=== PATIENT | female | born 1990 | race Caucasian/White ===

== ENCOUNTER 2019-04-10 13:51 | Outpatient (CLI) | payer BC ==
[2019-04-10 14:26] LABS: APPEARANCE,URINE CLEAR; BILIRUBIN,URINE NEGATIVE (NEGATIVE); COLOR,URINE YELLOW; GLUCOSE, URINE NEGATIVE (NEGATIVE); KETONES,URINE NEGATIVE (NEGATIVE); LEUKOCYTE ESTERASE,URINE SMALL (NEGATIVE); NITRITE,URINE NEGATIVE (NEGATIVE); PROTEIN,URINE NEGATIVE (NEGATIVE); URINE SPECIFIC GRAVITY 1.009; UROBILINOGEN,URINE NEGATIVE mg/dL (<2.0)
[2019-04-10 14:53] LABS: URINE AMPHETAMINES SCREEN NEGATIVE; URINE BARBITURATES SCREEN NEGATIVE; URINE BENZODIAZEPINES SCREEN NEGATIVE; URINE COCAINE SCREEN NEGATIVE; URINE MARIJUANA (THC) SCREEN NEGATIVE; URINE METHADONE SCREEN NEGATIVE; URINE PHENCYCLIDINE SCREEN NEGATIVE
== END 2019-04-10 14:59 | disposition home or self-care (01) ==
LOC: LC 13:51
PROVIDERS: ATTEND Obstetrics & Gynecology
PROC: 4A1HXCZ Monitoring of Products of Conception, Cardiac Rate, External Approach (ICD-10-PCS; principal; 2019-04-10)
DX: O47.03 False labor before 37 completed weeks of gestation, third trimester (principal); Z3A.36 36 weeks gestation of pregnancy
CPT/HCPCS: 59025; 80307; 81001; 87086

== ENCOUNTER 2019-04-21 16:30 | Inpatient (IN) | payer BC ==
[2019-04-21 17:13] LABS: APPEARANCE,URINE SLIGHTLY-CLOUDY; BILIRUBIN,URINE NEGATIVE (NEGATIVE); COLOR,URINE YELLOW; GLUCOSE, URINE 50 mg/dL (NEGATIVE); KETONES,URINE NEGATIVE (NEGATIVE); LEUKOCYTE ESTERASE,URINE NEGATIVE (NEGATIVE); NITRITE,URINE NEGATIVE (NEGATIVE); PROTEIN,URINE NEGATIVE (NEGATIVE); URINE SPECIFIC GRAVITY 1.014; UROBILINOGEN,URINE NEGATIVE mg/dL (<2.0)
[2019-04-21 17:24] LABS: URINE AMPHETAMINES SCREEN NEGATIVE; URINE BARBITURATES SCREEN NEGATIVE; URINE BENZODIAZEPINES SCREEN NEGATIVE; URINE COCAINE SCREEN NEGATIVE; URINE MARIJUANA (THC) SCREEN NEGATIVE; URINE METHADONE SCREEN NEGATIVE; URINE PHENCYCLIDINE SCREEN NEGATIVE
[2019-04-21] MEDS ORDERED: RINGERS SOLUTION,LACTATED 1,000 ML IV ONE (17:25)
[2019-04-21] MEDS ORDERED: RINGERS SOLUTION,LACTATED 1,000 ML IV PRN (17:45)
[2019-04-21] MEDS ORDERED: OXYTOCIN/NORMAL SALINE 20 UNIT/1,000 ML RTUINJ IV PRN (18:28)
--- NOTE | 2019-04-21 18:37 | Admission Physical ---
Datetime Report Generated by CPN: 04/21/2019 18:37 CURRENT ADMISSION Chief Complaint: Uterine Contractions Admit Impression : , Intrauterine ; Active Labor; Ruptured Membranes Admit Plan: Admit to Unit; Initiate Labor Augmentation Protocol ALLERGIES Medication Allergies: Yes Medication Allergies: amoxicillin (04/21/2019) Latex: No Latex Allergies Food Allergies: none Environmental Allergies: none OBSTETRICAL HISTORY EDC: 05/08/2019 00:00 : 1 Para: 0 Term: 0 : 0 SAB: 0 IAB: 0 Ectopic: 0 Livin Cesareans: 0 VBACs: 0 Multiple Births: 0 Gestational Diabetes: Yes Rh Sensitization: No Incompetent Cervix: No YOBANI: No Infertility: No ART Treatment: No Uterine Anomaly: No IUGR: No Hx Previous C/S: No Macrosomia: No Hx Loss/Stillborn: No PIH: No Hx : No Placenta Previa/Abruption: No Depression/PP Depression: No PTL/PROM: No Post Hemorrhage: No Current Procedures: Ultrasound; NST; BPP Obstetrical History Comments: G1: current, GDM diet controlled SEE RECORDS Alcohol: No Marijuana : No Cocaine: No Other Illicit Drugs: No Cigarettes: Former Smoker. 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 Surgery: No Heart Disease: No Hosp/Surgery: No Autoimmune Disorder: No Anesthetic Complications: No Kidney Disease: No Abnormal Pap Smear: No Neuro/Epilepsy: No Psychiatric Disorders: No Other Medical Diseases: No Hepatitis/Liver Disease: No Significant Family History: No Varicosities/Phlebitis: No Trauma/Violence : No Thyroid Dysfunction: No INFECTIOUS HISTORY Gonorrhea: No Genital Herpes: No Chlamydia: No Tuberculosis: No Syphilis: No Hepatitis: No HIV/AIDS Exposure: No Rash or Viral Illness: No HPV: No PHYSICAL EXAM General: Normal HEENT: Normal Neurologic: Normal Thyroid: Normal Heart: Normal Lungs: Normal Breast: Normal Back: Normal Abdomen: Normal Genitourinary Exam: Normal Extremities: Normal DTRs: Normal Pelvic Type: Adequate Vital Signs: Reviewed VAGINAL EXAM Dilatation: 3 Effacement: 50 Station: -1 MEMBRANES Pooling: Positive Membranes: Ruptured Amniotic Fluid Color: Clear FETUS A EGA: 37.4 Monitoring: External US FHR- Baseline: 140 Variability: Moderate 6-25bpm Accelerations: 15X15 Decelerations: None FHR Category: Category I Presentation: Vertex Admit Comment: 28 yo G1 at 37.4 wks EGA with SROM at 0330 am today at home, now active labor -Admit to LDR -NPO and IVFs -CEFM and toco -GBS negative, vertex -Clear fluid at time of SROM at 0330 -Anticipate PLANS FOR LABOR AND DELIVERY Labor and Delivery: None Pain Management: Epidural Feeding Preference: Both Benefit of Breast Feed Discussed: Yes Circumcision: N/A INFORMED CONSENT Informed Consent Obtained: Vaginal Delivery; Induction of Labor; Vacuum/Forceps Assist; Risks, Benefits and Alternatives Discussed Signature: with User ID: Jennie : with User ID: [email or web address]
[2019-04-21] MEDS ORDERED: MISOPROSTOL 0.2 MG TABLET ONE (18:39)
[2019-04-21] MEDS ORDERED: LIDOCAINE 1% INJ-PF (10 MG/ML) 30 ML SDV ONE (18:39)
[2019-04-21] MEDS ORDERED: OXYTOCIN 10 UNIT/ML VIAL ONE (18:39)
[2019-04-21] MEDS ORDERED: OXYTOCIN/NORMAL SALINE 20 UNIT/1,000 ML RTUINJ ONE (18:40)
[2019-04-21 18:53] LABS: ABSOLUTE EOSINOPHILS # (AUTO) 0.1 10^3/uL (0.0-0.6); ABSOLUTE LYMPHOCYTES (AUTO) 2.8 10^3/uL (0.5-4.7); ABSOLUTE MONOCYTES (AUTO) 0.7 10^3/uL (0.1-1.4); ABSOLUTE NEUT (AUTO) 4.8 10^3/uL (1.7-8.2); BASOPHILS % (AUTO) 0.4 % (0-2); EOSINOPHILS % (AUTO) 0.6 % (0-6); HEMATOCRIT 39.9 % (36.0-47.0); HEMOGLOBIN 13.6 g/dL (12.0-15.5); LYMPHOCYTES % (AUTO) 33.2 % (13-45); MEAN CORPUSCULAR HEMOGLOBIN 31.1 pg (27.0-33.4); MEAN CORPUSCULAR HGB CONC 34.1 g/dL (32.0-36.0); MEAN CORPUSCULAR VOLUME 91 fl (80-97); PLATELET COUNT 190 10^3/uL (150-450); RED BLOOD COUNT 4.38 10^6/uL (3.72-5.28); RED CELL DISTRIBUTION WIDTH 13.9 % (11.5-14.0); SEGMENTED NEUTROPHILS % (AUTO) 57.8 % (42-78); TOTAL CELLS COUNTED % (AUTO) 100 %; WHITE BLOOD COUNT 8.3 10^3/uL (4.0-10.5)
[2019-04-22] MEDS ORDERED: PHENYLEPHRINE HCL INJ/PF 10 MG/1 ML SDV ONE (00:29)
[2019-04-22] MEDS ORDERED: BUPIVACAINE HCL 0.25 % INJ/PF (2.5 MG/1 ML) 30 ML VIAL ONE (00:30)
[2019-04-22] MEDS ORDERED: FENTANYL CITRATE INJ/PF 100 MCG/2 ML AMPUL ONE (00:30)
[2019-04-22] MEDS ORDERED: FENTANYL/BUPIVACAINE/NS/PF 300 MCG/150 ML RTUINJ EPI ONE (00:30)
[2019-04-22] MEDS ORDERED: EPHEDRINE SULFATE INJ 50 MG/1 ML AMPULE ONE ×2 (00:30→00:32)
[2019-04-22] MEDS ORDERED: GLYCERIN/WITCH HAZEL LEAF 1 EACH MED..WIPE TP PRN (06:25)
[2019-04-22] MEDS ORDERED: PSEUDOEPHEDRINE HCL 30 MG TABLET PO PRN (06:25)
[2019-04-22] MEDS ORDERED: PROMETHAZINE HCL INJ 25 MG/1 ML VIAL IV PRN (06:25)
[2019-04-22] MEDS ORDERED: MAGNESIUM HYDROXIDE SUSP 30 ML UDCUP PO PRN (06:25)
[2019-04-22] MEDS ORDERED: DIPHENHYDRAMINE HCL 25 MG CAPSULE PO PRN (06:25)
[2019-04-22] MEDS ORDERED: PROMETHAZINE HCL 25 MG TABLET PO PRN (06:25)
[2019-04-22] MEDS ORDERED: OXYTOCIN/NORMAL SALINE 20 UNIT/1,000 ML RTUINJ IV PRN (06:25)
[2019-04-22] MEDS ORDERED: NA PHOS,M-B/NA PHOS,DI-BA (ADULT) 133 ML ENEMA PR PRN (06:25)
[2019-04-22] MEDS ORDERED: DIPH/PERTUSS(ACELL)/TETANUS VAC/PF 0.5 ML SYR (>=10YO) IM PRN (06:25)
[2019-04-22] MEDS ORDERED: BENZOCAINE/MENTHOL AEROSOL SPRAY 56 ML TOP PRN (06:25)
[2019-04-22] MEDS ORDERED: MEASLES,MUMPS&RUBELLA VACC/PF 0.5 ML VIAL SUBCUT PRN (06:25)
[2019-04-22] MEDS ORDERED: ACETAMINOPHEN 650 MG SUPP.RECT PR PRN (06:25)
[2019-04-22] MEDS ORDERED: ZOLPIDEM TARTRATE 5 MG TABLET PO PRN (06:25)
[2019-04-22] MEDS ORDERED: PROMETHAZINE HCL 25 MG SUPP.RECT PR PRN (06:25)
[2019-04-22] MEDS ORDERED: DIBUCAINE 1% OINTMENT 28 GM TP PRN (06:25)
[2019-04-22] MEDS ORDERED: ACETAMINOPHEN WITH CODEINE #3 TABLET PO PRN (06:25)
[2019-04-22] MEDS ORDERED: ACETAMINOPHEN WITH CODEINE #3 TABLET ONE (06:32)
[2019-04-22] MEDS ORDERED: PRENATAL VITAMIN W DHA CAPSULE PO ONE (10:57)
[2019-04-22] MEDS ORDERED: DOCUSATE SODIUM 100 MG CAPSULE ONE (10:57)
[2019-04-22] MEDS ORDERED: FERROUS SULFATE 325 MG TABLET PO ONE (10:57)
[2019-04-22] MEDS ORDERED: SENNOSIDES/DOCUSATE 8.6-50 MG 1 EACH TABLET ONE (10:57)
[2019-04-22] MEDS ORDERED: FAMOTIDINE 20 MG TABLET ONE (10:57)
[2019-04-22] MEDS: FERROUS SULFATE 325 MG TABLET PO SCH ×2 (11:02→17:11)
[2019-04-22] MEDS: SENNOSIDES/DOCUSATE 8.6-50 MG 1 EACH TABLET PO SCH (11:02)
[2019-04-22] MEDS: DOCUSATE SODIUM 100 MG CAPSULE PO SCH ×2 (11:03→17:11)
[2019-04-22] MEDS: FAMOTIDINE 20 MG TABLET PO SCH ×2 (11:03→21:55)
[2019-04-22] MEDS: PRENATAL VITAMIN W DHA CAPSULE PO SCH (11:03)
[2019-04-22] MEDS ORDERED: IBUPROFEN 800 MG TABLET ONE (13:50)
[2019-04-22] MEDS: IBUPROFEN 800 MG TABLET PO SCH ×3 (13:52→21:55)
[2019-04-23] MEDS: ACETAMINOPHEN WITH CODEINE #3 TABLET PO PRN ×2 (04:11→12:19)
[2019-04-23] MEDS: IBUPROFEN 800 MG TABLET PO SCH ×3 (06:21→22:19)
[2019-04-23 08:02] LABS: HEMATOCRIT 32.4 % (36.0-47.0); MEAN CORPUSCULAR HEMOGLOBIN 31.6 pg (27.0-33.4); MEAN CORPUSCULAR HGB CONC 35.3 g/dL (32.0-36.0); MEAN CORPUSCULAR VOLUME 90 fl (80-97); PLATELET COUNT 142 10^3/uL (150-450); RED BLOOD COUNT 3.61 10^6/uL (3.72-5.28); RED CELL DISTRIBUTION WIDTH 13.5 % (11.5-14.0); WHITE BLOOD COUNT 8.6 10^3/uL (4.0-10.5)
[2019-04-23 08:05] LABS: HEMOGLOBIN 11.4 g/dL (12.0-15.5)
[2019-04-23] MEDS: DOCUSATE SODIUM 100 MG CAPSULE PO SCH ×2 (09:07→18:17)
[2019-04-23] MEDS: SENNOSIDES/DOCUSATE 8.6-50 MG 1 EACH TABLET PO SCH (09:07)
[2019-04-23] MEDS: FERROUS SULFATE 325 MG TABLET PO SCH ×2 (09:07→18:17)
[2019-04-23] MEDS: FAMOTIDINE 20 MG TABLET PO SCH ×2 (09:07→22:18)
[2019-04-23] MEDS: PRENATAL VITAMIN W DHA CAPSULE PO SCH (09:07)
--- NOTE | 2019-04-23 11:18 | PDOC PROGRESS REPORT ---
Subjective-OB Progress Note for:: 04/23/19 Subjective: reports bleeding slowing, pain controlled with current meds, denies needs Physical Exam (OB) Vital Signs: Temp Pulse Resp BP Pulse Ox 98.0 F 63 16 109/62 100 04/23/19 07:44 04/23/19 07:44 04/23/19 07:44 04/23/19 07:44 04/23/19 07:44 Intake & Output 04/22/19 04/23/19 04/24/19 06:59 06:59 06:59 Weight 86 kg - Abdomen Description: Soft Hernia Present: No Fundal Description: Firm Fundal Height: u/u - u/2 - Abdominal Distension: No distension Tenderness: Nontender - Extremities Lower extremities: Clementina's sign - neg Calf: Normal, Nontender Objective-Diagnostic Laboratory: 04/23/19 07:26 04/23/19 07:26 WBC 8.6 RBC 3.61 L Hgb 11.4 L D Hct 32.4 L MCV 90 MCH 31.6 MCHC 35.3 RDW 13.5 Plt Count 142 L
[2019-04-24] MEDS: IBUPROFEN 800 MG TABLET PO SCH ×2 (06:23→13:16)
[2019-04-24 07:50] VITALS: BP 115/66
[2019-04-24] MEDS: PRENATAL VITAMIN W DHA CAPSULE PO SCH (09:27)
[2019-04-24] MEDS: FAMOTIDINE 20 MG TABLET PO SCH (09:27)
[2019-04-24] MEDS: FERROUS SULFATE 325 MG TABLET PO SCH (09:28)
[2019-04-24] MEDS: SENNOSIDES/DOCUSATE 8.6-50 MG 1 EACH TABLET PO SCH (09:28)
[2019-04-24] MEDS: DOCUSATE SODIUM 100 MG CAPSULE PO SCH (09:28)
[2019-04-24] MEDS: ACETAMINOPHEN WITH CODEINE #3 TABLET PO PRN (11:04)
--- NOTE | 2019-04-24 12:00 | PDOC DISCHARGE SUMMARY ---
Impression - Admit/DC Date/PCP Admission Date/Primary Care Provider: 04/21/19 17:39 EBONIE GAITAN MD Discharge Date: 04/24/19 - PP day #2, doing well, no complaints, A+, Rubella Immune, Hx GDM-DC - Discharge Diagnosis (1) Diet controlled gestational diabetes mellitus Is this a current diagnosis for this admission?: Yes (2) (normal spontaneous vaginal delivery) Is this a current diagnosis for this admission?: Yes (3) Routine follow-up Is this a current diagnosis for this admission?: Yes - Additional Information Resuscitation Status: Full Code Discharge Diet: As Tolerated, Regular Discharge Activity: Activity As Tolerated, No Lifting Over 10 Pounds, Pelvic Rest Referrals: EBONIE GAITAN MD [Primary Care Provider] - Prescriptions: Ibuprofen [Motrin 800 mg Tablet] 800 mg PO Q8 #60 tablet Home Medications: Ibuprofen [Motrin 800 mg Tablet] 800 mg PO Q8 #60 tablet 04/24/19 HPI Reason(s) for Admission: Induction of Labor, Gestional Diabetes Procedures: NST, Ultrasound Intrapartum Procedure(s): Spontaneous Vaginal Delivery Results Laboratory Results: WBC 8.6 10^3/uL (4.0-10.5) 04/23/19 07:26 RBC 3.61 10^6/uL (3.72-5.28) L 04/23/19 07:26 Hgb 11.4 g/dL (12.0-15.5) L D 04/23/19 07:26 Hct 32.4 % (36.0-47.0) L 04/23/19 07:26 MCV 90 fl (80-97) 04/23/19 07:26 MCH 31.6 pg (27.0-33.4) 04/23/19 07:26 MCHC 35.3 g/dL (32.0-36.0) 04/23/19 07:26 RDW 13.5 % (11.5-14.0) 04/23/19 07:26 Plt Count 142 10^3/uL (150-450) L 04/23/19 07:26 Lymph % (Auto) 33.2 % (13-45) 04/21/19 18:28 [place] % (Auto) 8.0 % (3-13) 04/21/19 18:28 Eos % (Auto) 0.6 % (0-6) 04/21/19 18:28 Baso % (Auto) 0.4 % (0-2) 04/21/19 18:28 Absolute Neuts (auto) 4.8 10^3/uL (1.7-8.2) 04/21/19 18:28 Absolute Lymphs (auto) 2.8 10^3/uL (0.5-4.7) 04/21/19 18:28 Absolute Monos (auto) 0.7 10^3/uL (0.1-1.4) 04/21/19 18: Absolute Eos (auto) 0.1 10^3/uL (0.0-0.6) 04/21/19 18:28 Absolute Basos (auto) 0.0 10^3/uL (0.0-0.2) 04/21/19 18:28 Seg Neutrophils % 57.8 % (42-78) 04/21/19 18:28 Urine Color YELLOW 04/21/19 16:45 Urine Appearance SLIGHTLY-CLOUDY 04/21/19 16:45 Urine pH 7.0 (5.0-9.0) 04/21/19 16:45 Ur Specific [place] 1.014 04/21/19 16:45 Urine Protein NEGATIVE mg/dL (NEGATIVE) 04/21/19 16:45 Urine Glucose (UA) 50 mg/dL (NEGATIVE) H 04/21/19 16:45 Urine Ketones NEGATIVE mg/dL (NEGATIVE) 04/21/19 16:45 Urine Blood NEGATIVE (NEGATIVE) 04/21/19 16:45 Urine Nitrite NEGATIVE (NEGATIVE) 04/21/19 16:45 Urine Bilirubin NEGATIVE (NEGATIVE) 04/21/19 16:45 Urine Urobilinogen NEGATIVE mg/dL (<2.0) 04/21/19 16:45 Ur Leukocyte Esterase NEGATIVE (NEGATIVE) 04/21/19 16:45 Urine Ascorbic Acid NEGATIVE (NEGATIVE) 04/21/19 16:45 Membranes Rupture POSITIVE (NEGATIVE) H 04/21/19 16:47 Urine Opiates Screen NEGATIVE 04/21/19 16:45 Urine Methadone Screen NEGATIVE 04/21/19 16:45 Ur Barbiturates Screen NEGATIVE 04/21/19 16:45 Ur Phencyclidine Scrn NEGATIVE 02/07/20 16:45 Ur Amphetamines Screen NEGATIVE 04/21/19 16:45 U Benzodiazepines Scrn NEGATIVE 04/21/19 16:45 Urine Cocaine Screen NEGATIVE 04/21/19 16:45 U Marijuana (THC) Screen NEGATIVE 04/21/19 16:45 RPR NONREACTIVE (NONREACTIVE) 04/21/19 18:28 Blood Type A POSITIVE 04/21/19 18:29 Antibody Screen NEGATIVE 04/21/19 18:29 Plan Plan of Treatment: D/c home, f/u with [facility] in 4 wks Time Spent: Less than 30 Minutes
--- NOTE | 2019-04-26 07:47 | Delivery Summary ---
Del Sum A-C Datetime Report Generated by CPN: 04/26/2019 07:46 DELIVERY PERSONNEL DELIVERY PERSONNEL: [id number] Delivery Doctor:: Ana Rosa Buitrago MD Labor and Delivery Nurse:: She Queen RNcommercial journeyman electrician Nurse:: Janet Bahena RN Research Engineer/CONVERTIBLE TOP INSTALLER: Jocelyne Ross, ST MATERNAL INFORMATION Delivery Anesthesia: Epidural Medications After Delivery: Pitocin Drip 20 Units/1000ml NSS Estimated Blood Loss (ml): 200 Delivery QBL: 200 Maternal Complications: Premature Rupture of Membranes Provider Comments: Called to patients room completely dilated and +2. SHe pushed for a while and delivered a viable female over an intact perineum. Infant vigorous and cord clamping delayed for 30 seconds. Cord then doubly clamped, cut and infant placed skin to skin iwth father. Fundus firm. There was a small left labial laceration that was very shallow and hemostatic. Both and mother stable LABOR SUMMARY EDC: 05/08/2019 00:00 No. Babies in Womb: 1 Attempted: No Labor Anesthesia: Epidural LABOR INFORMATION Reason for Induction: Not Applicable Onset of Labor: 04/21/2019 03:00 Complete Dilatation: 04/22/2019 05:26 Oxytocin: Augmentation Group B Beta Strep: negative Antibiotics # of Doses: 0 Steroids Given: None Reason Steroids Not Administered: Not Applicable MEMBRANES Membranes Rupture Method: Spontaneous Rupture of Membranes: 04/21/2019 03:00 Length of Rupture (hr): 27.22 Amniotic Fluid Color: Clear Amniotic Fluid Amount: Moderate Amniotic Fluid Odor: Normal STAGES OF LABOR Stage 1 hr: 26 Stage 1 min: 26 Stage 2 hr: 0 Stage 2 min: 47 Stage 3 hr: 0 Stage 3 min: 6 Total Time in Labor hr: 27 Total Time in Labor min: 19 VAGINAL DELIVERY Episiotomy: None Laceration #1: None Laceration Extension #1: N/A Laceration Repair: Not Applicable Sponge Count Correct: Yes Sharps Count Correct: Yes CSECTION DELIVERY Primary Indication: N/A Secondary Indication: N/A CSection Incidence: N/A Labor: N/A Elective: N/A CSection Incision: N/A BABY A INFORMATION Delivery Date/Time: 04/22/2019 06:13 Method of Delivery: Vaginal Method of Delivery: Vaginal Nurse Controlled Delivery: No Born in Route : No : N/A Forceps: N/A Vacuum Extraction: N/A Shoulder Dystocia : No PRESENTATION/POSITION BABY A Presentation: Cephalic Cephalic Presentation: Vertex Vertex Position: Left Occipital Anterior Breech Presentation: N/A PLACENTA INFORMATION BABY A Placenta Delivery Time : 04/22/2019 06:19 Placenta Method of Delivery: Spontaneous Placenta Method of Delivery: Spontaneous Placenta Status: Delivered SCORES BABY A Heart Rate 1 min: >100 bpm Resp Effort 1 min: Good Cry Reflex Irritability 1 min: Cough or Sneeze or Pulls Away Muscle Tone 1 min: Active Motion Color 1 min: Blue/Pale Resuscitation Effort 1 min: Tactile Stimulation SCORE 1 MIN: 8 Heart Rate 5 min: >100 bpm Resp Effort 5 min: Good Cry Reflex Irritability 5 min: Cough or Sneeze or Pulls Away Muscle Tone 5 min: Active Motion Color 5 min: Body [place], Extremities Blue Resuscitation Effort 5 min: Tactile Stimulation SCORE 5 MIN: 9 INFORMATION BABY A Gestational Age at Delivery: 37.5 Gestational Status: Early Term- 37- 38.6 Weeks Infant Outcome : Liveborn Condition : Stable Infant Sex: Female Sex: Female IDENTIFICATION BABY A Infant Verification Date/Time: 04/22/2019 07:01 ID Band Number: [id number] Mother's Name Verified: Yes Infant RN Verifying : Sonny Queen, RN Additional Verifying Personnel: Jose Pryor RN WEIGHT/LENGTH BABY A Birthweight (gm): 3607 Weight (lb): 7 Infant Weight (oz): 15 Length (in): 20.00 Length (cm): 50.80 CORD INFORMATION BABY A No. Cord Vessels: 3 Nuchal Cord : N/A Cord Blood Taken: Yes-For Storage (Mom's Blood type +) Suction: Mouth; Nose ASSESSMENT BABY A Complications: None Physical Findings at Delivery: Within Normal Limits Infant Respirations: Appears Normal Skin to Skin: Yes Care By: ALEJANDRA Parsons Transferred To: Remains with Mother SIGNATURES Signature: with User ID: Jennie : with User ID: [email or web address]
== END 2019-04-24 18:00 | disposition home or self-care (01) | DRG 807 ==
LOC: LC 16:30 → LR 17:39 → 2S 04-22 13:59
PROVIDERS: ADMIT Obstetrics & Gynecology; ATTEND Obstetrics & Gynecology
PROC: 10E0XZZ Delivery of Products of Conception, External Approach (ICD-10-PCS; principal; 2019-04-22)
PROC: 0HQ9XZZ Repair Perineum Skin, External Approach (ICD-10-PCS; 2019-04-22)
DX: O24.420 Gestational diabetes mellitus in childbirth, diet controlled (principal); Z37.0 Single live birth; O42.12 Full-term premature rupture of membranes, onset of labor more than 24 hours following rupture; O70.0 First degree perineal laceration during delivery; Z3A.37 37 weeks gestation of pregnancy
CPT/HCPCS: 36415; 80307; 81005; 84112; 85025; 85027; 86592; 86850; 86900; 86901; J2370; J2590; J3010; J3490